=== PATIENT | female | born 1975 | race Two or more races ===

== ENCOUNTER 2020-05-22 19:58 | Observation (INO) | payer OTHER ==
[~2020-05-22 19:58] MED LIST: Iopamidol 370 76% 100 ML VIAL ONE; Iopamidol 370 76% 50 ML VIAL FS ONE
[2020-05-22] MEDS ORDERED: diphenhydrAMINE 50 MG/ML VIAL ONE (20:53)
[2020-05-22] MEDS ORDERED: Metoclopramide HCl 10 MG/2 ML VIAL ONE (20:53)
[2020-05-22] MEDS ORDERED: Promethazine HCl 25 MG/ML VIAL ONE (21:24)
[2020-05-22 21:33] LABS: ALT (SGPT) 13 U/L (8-55); AST (SGOT) 16 U/L (5-34); Albumin 4.1 g/dL (3.5-5.0); Alkaline Phosphatase 63 U/L (40-110); Anion Gap 17 mmol/L (10-20); BUN (Urea Nitrogen) 7 mg/dL (7.0-18.7); Bilirubin, Total 0.7 mg/dL (0.2-1.2); Calc. Creatinine Clearance 0 mL/min (70-130); Calcium 9.5 mg/dL (7.8-10.44); Carbon Dioxide 21 mmol/L (22-29); Chloride 106 mmol/L (98-107); Estimated GFR-MDRD 67; Globulin 2.8 g/dL (2.4-3.5); Glucose 110 mg/dL (70-105); Lipase 18 U/L (8-78); Protein, Total 6.9 g/dL (6.0-8.3); Sodium 140 mmol/L (136-145)
[2020-05-22 22:19] LABS: BHCG - Serum Negative (NEGATIVE); Pregs Control Background? CLEAR/WHITE (CLR/WHITE); Pregs Control Bar Appear? YES (CONTROL BAR)
[2020-05-22] MEDS ORDERED: Haloperidol Lactate 5 MG/ML VIAL ONE (22:48)
[2020-05-22 23:22] LABS: Bilirubin Negative (Negative); Blood, Urine Negative (Negative); Clarity Clear (Clear); Glucose, Urine (Dipstick) Normal (Negative); Ketone, Urine 60 mg/dL (Negative); Leukocyte Negative Leu/uL (Negative); Nitrite Negative (Negative); Protein, Urine (Dipstick) Negative (Neg-Trace); Specific Gravity, Urine 1.016 (1.002-1.036); Urobilinogen Normal mg/dL (Less than 2)
[2020-05-22] MEDS ORDERED: Ondansetron PF 4 MG/2 ML Vial ONE (23:43)
[2020-05-22] MEDS ORDERED: Magnesium 2 GM/50 ML BAG (IN WATER) ONE (23:43)
--- NOTE | 2020-05-23 00:03 | PDOC.FPRHP ---
- History of Present Illness Chief Complaint: N/V History of Present Illness: 44 yo F with history of cannabinoid use and gastric bypass surgery in 2004 complaining of nausea and vomiting since Thursday. Patient is from [place] and in town visiting family, explains she has been vomiting daily since Thursday and has taken zofran and phenergen at home which has not help. Vomiting became more frequent today, occurring every few minutes for 3 hours. Vomit consists of foam as patient has not eaten since Thursday. Patient had similar episode last month, which lasted a few days and then stopped. Of note, patient reports an 80 pound weight loss last year due to decreased appetite but reports her appetite returned this year and she has gained most of it back. Patient denies vision changes, fever and hematemesis. She endorses chills and abdominal pain and reports diarrhea last Thursday for which she took immodium and has had 2-3 small bowel movements since. Patient also complains of tingling in her legs since being in the ED and receiving medications, explaining it feels like "bugs are crawling all over her legs" and she finds it hard to sit still. ED Course: Received phenergen, reglan, haldol, zofran, benadryl, thiamine, 2L fluids, and magnesium in ED - Allergies/Adverse Reactions Allergies Allergy/AdvReac Type Severity Reaction Status Date / Time No Known Drug Allergies Allergy Verified 05/23/20 08:14 - History PMHx: depression, anxiety, GERD, anemia PSHx: gastric bypass 2004 FHx: Mom-tortuous colon, thyroid cancer, Dad-HTN Social: vapes, drinks a 6pack once a week, smokes marijuana daily, denies other drug use - Review of Systems General: reports: fever/chills. denies: weight/appetite/sleep changes, night sweats Eyes: denies: vision changes ENT: denies: nasal congestion Respiratory: denies: shortness of breath Cardiovascular: denies: chest pain Gastrointestinal: reports: nausea, vomiting, diarrhea, constipation, abdominal pain Genitourinary: denies: dysuria Skin: denies: rashes, itching Musculoskeletal: denies: pain, tenderness Neurological: denies: numbness, seizure, weakness - Vital signs BP: 141/80 HR: 66 RR: 22 Tmax: 98.8 Pox: 98% on RA Wt: 84kg - Physical Exam Constitutional: awake, alert and oriented HEENT: normocephalic and atraumatic, EOMI, no scleral icterus, grossly normal vision, grossly normal hearing Neck: supple, FROM Heart: RRR, no murmurs/rubs/gallops Lungs: CTAB, no respiratory distress, no wheezing Abdomen: soft, non-tender Musculoskeletal: ROM grossly normal Neurological: no focal deficit, CN II-XII intact Skin: no rash/lesions Psychiatric: normal mood and affect, good judgment and insight, intact recent and remote memory FMR H&P: Results - Labs Result Diagrams: 05/23/20 04:32 05/23/20 04:32 Lab results: Sodium 140 mmol/L (136-145) 05/22/20 20:43 Potassium 4.0 mmol/L (3.5-5.1) 05/22/20 20:43 Chloride 106 mmol/L (98-107) 05/22/20 20:43 Carbon Dioxide 21 mmol/L (22-29) L 05/22/20 20:43 BUN 7 mg/dL (7.0-18.7) 05/22/20 20:43 Creatinine 0.91 mg/dL (0.6-1.1) 05/22/20 20:43 Glucose 110 mg/dL (70-105) H 05/22/20 20:43 Calcium 9.5 mg/dL (7.8-10.44) 05/22/20 20:43 Total Bilirubin 0.7 mg/dL (0.2-1.2) 05/22/20 20:43 AST 16 U/L (5-34) 05/22/20 20:43 ALT 13 U/L (8-55) 05/22/20 20:43 Alkaline Phosphatase 63 U/L (40-110) 05/22/20 20:43 Serum Total Protein 6.9 g/dL (6.0-8.3) 05/22/20 20:43 Albumin 4.1 g/dL (3.5-5.0) 05/22/20 20:43 Lipase 18 U/L (8-78) 05/22/20 20:43 Urine Ketones 60 mg/dL (Negative) A 05/22/20 22:07 Urine Blood Negative (Negative) 05/22/20 22:07 Urine Nitrite Negative (Negative) 05/22/20 22:07 Ur Leukocyte Esterase Negative Licha/uL (Negative) 05/22/20 22:07 - EKG Interpretation EKG: sinus bradycardia - Radiology Interpretation CT scan - abdomen Status: pending FMR H&P: A/P - Plan 44 yo F with history of cannabinoid use and gastric bypass surgery in 2004 complaining of nausea and vomiting Intractable vomiting 2/2 to gastric bypass vs cannabis hyperemesis syndrome Nonresponsive to phenergen, zofran, reglan, zofran, benadryl in ED. Reports improvement with warm bath -Admit to tele to monitor for QT prolongation, receive Mg in ED -scopolamine patch -TSH pending -Daily CBC, BMP -LR 125mL/hr -Abd CT reading pending Cannabis use Endorses daily use, unclear of how much -May be cause of nausea and vomiting Alcohol use Endorses drinking a 6pack per week. No current signs of alcohol withdrawl. -ASE protocol Depression -Aware, continue Zoloft Anxiety -Aware, continue Zoloft GERD -Aware, continue Zoloft DVT PPx: None Diet: NPO Code: FULL IVF: LR 125mL/hr Dispo: eLOS< 48hrs pending resolution of symptoms FMR H&P: Upper Level - Plan Date/Time: 05/23/20 Cedric Chavira DO, have evaluated this patient and agree with findings/plan as outlined by international project engineer resident. Pertinent changes/additions are listed here. 44 yo F prsents with n/v for the past 3-4 day she recently drove from [facility] to be with family reports nausea and vomiting upon arrival which did not resolve. she denies other symptoms bowel movements have been diarrhea and form stools, no hematochezia or hematemesis. denies fever/chills, flank pain. she has a hx of episodes of nv similar to this which resolved. reports cannabis use daily. nv improved with hot baths. in ED she received fluid, reglan, zofran, haldol, benadryl. on my exam she is restless but reports improvement to nv. vss, ekg wnl, labs wnl. ct ab/pel reviewed by me without significant abnormality, official read pending. Admit for intractable n/v likely secondary to cannabis hyperemesis syndrome, will make anti-emetics available prn, maintenance IVF. see international project engineer not for mgmt of chronic medical conditions. Addendum - Attending - Attending Attestation Date/Time: 05/23/201399 I personally evaluated the patient and discussed the management with Dr. Narvaez I agree with the History, Examination, Assessment and Plan documented above with any addition or exceptions noted below - 44 yo F with history of cannabinoid use and gastric bypass surgery in 2004 complaining of nausea and vomiting since Thursday. Patient is from [place] and in town visiting family, explains she has been vomiting daily since Thursday and has taken zofran and phenergen at home which has not help. Vomiting became more frequent today, occurring every few minutes for 3 hours. Vomit consists of foam as patient has not eaten since Thursday. Patient had similar episode last month, which lasted a few days and then stopped. Denies fever/chills. Denies ill contacts. Is here visiting from [place]. Does report that she feels better when she takes a warm bath or shower. Currently feeling a little better; has had some apple juice with no vomiting. PMH/PSH/Meds/SH reviewed and agree with resident's documentation. Afebrile VSS. Exam repeated by me and agree with resident's findings. Labs: Normal CMP,CBC, TSH. UDS (+) MJ A/P: 1) N/V most likely cannabis hyperemesis - continue antiemetics and IVF. If able to control symptoms with po meds, plan to d/c home.
[2020-05-23 00:09] LABS: #Basophils 0.1 thou/uL (0.0-0.2); #Lymphocytes 0.8 thou/uL (1.20-3.40); #Monocytes 0.2 thou/uL (0.11-0.59); #Neutrophils 9.6 thou/uL (1.40-6.50); %Basophils 0.5 % (0.0-1.0); %Lymphocytes 7.5 % (21.0-51.0); %Monocytes 2.1 % (0.0-10.0); %Neutrophils 89.9 % (42.0-75.0); Hemoglobin 15.6 g/dL (12.0-16.0); Mean Corpuscular HGB CONC 35.1 g/dL (32.0-36.0); Mean Corpuscular Hemoglobin 32.3 pg (27.0-31.0); Mean Corpuscular Volume 92.3 fL (78.0-98.0); Mean Platelet Volume 7.6 fL (7.4-10.4); Platelet Count 262 thou/uL (130-400); RBC Distribution Width 12.5 % (11.5-14.5); Red Blood Cell (RBC) Count 4.81 mill/uL (4.20-5.40); White Blood Cell (WBC) Count 10.7 thou/uL (4.8-10.8)
[2020-05-23] MEDS ORDERED: Ondansetron PF 4 MG/2 ML Vial IVP PRN (00:34)
[2020-05-23] MEDS ORDERED: Ondansetron ODT 4 MG TAB PO PRN ×4 (00:34→11:35)
[2020-05-23] MEDS ORDERED: Acetaminophen 650 MG Suppository PR PRN (00:34)
[2020-05-23] MEDS ORDERED: Acetaminophen 325 MG TAB PO PRN (00:34)
[2020-05-23] MEDS ORDERED: Promethazine HCl 25 MG in Sodium Chloride 0.9% 50 ML IVPB PRN (00:34)
[2020-05-23] MEDS ORDERED: Lactated Ringer's 1,000 ML IV SCH (00:45)
[2020-05-23] MEDS ORDERED: Scopolamine 1.5 mg/72 hour Patch TD SCH (01:00)
[2020-05-23 03:14] LABS: Amphetamine Not Detected (NotDetected); Barbiturates Screen Not Detected (NotDetected); Benzodiazepine Screen Not Detected (NotDetected); Cocaine Metabolite Screen Not Detected (NotDetected); Medtox Control Line Valid? VALID (VALID); Medtox Reader # READER 4; Methadone Not Detected (NotDetected); Methamphetamine Not Detected (NotDetected); Opiate Screen Not Detected (NotDetected); Oxycodone Screen Not Detected (NotDetected); Phencyclidine (PCP) Not Detected (NotDetected); THC/Cannabinoid Screen Detected (NotDetected); Tricyclic Screen Not Detected (NotDetected)
[2020-05-23] MEDS ORDERED: Ondansetron PF 4 MG/2 ML Vial ONE (04:18)
[2020-05-23 05:07] LABS: Hemoglobin 15.5 g/dL (12.0-16.0); Lymphocytes 7 % (21-51); MDiff Complete? YES; Mean Corpuscular HGB CONC 33.5 g/dL (32.0-36.0); Mean Corpuscular Volume 92.6 fL (78.0-98.0); Mean Platelet Volume 7.8 fL (7.4-10.4); Monocytes 3 % (0-10); Neutrophil 90 % (42-75); Platelet Count 286 thou/uL (130-400); Platelet Morphology Comment Appears Adequate; RBC Distribution Width 12.6 % (11.5-14.5); Red Blood Cell (RBC) Count 5.01 mill/uL (4.20-5.40); White Blood Cell (WBC) Count 11.6 thou/uL (4.8-10.8)
[2020-05-23 05:19] LABS: Anion Gap 16 mmol/L (10-20); BUN (Urea Nitrogen) 6 mg/dL (7.0-18.7); Calc. Creatinine Clearance 0 mL/min (70-130); Calcium 8.8 mg/dL (7.8-10.44); Carbon Dioxide 21 mmol/L (22-29); Chloride 105 mmol/L (98-107); Estimated GFR-MDRD 84; Glucose 147 mg/dL (70-105); Potassium 4.4 mmol/L (3.5-5.1); Sodium 138 mmol/L (136-145)
--- NOTE | 2020-05-23 07:32 | CT ---
CT ABDOMEN AND PELVIS WITH IV CONTRAST: Date: 05/22/2020 HISTORY: Vomiting since Thursday. COMPARISON: None. FINDINGS: A tiny approximately 3.0 mm noncalcified pulmonary nodule is seen in a subpleural location at the rig ht lung base which is too small to characterize. Lung bases are otherwise clear. Postoperative changes of the stomach and loops of small bowel in the left upper quadrant are noted, l ikely related to prior bariatric surgery. There is mild dilatation of the loop of small bowel in the region of postoperative change, but the remainder of the small bowel loops are normal in caliber with out findings to suggest a bowel obstruction. There is motion present in the right aspect of the abdom en which limits adequate evaluation and also limits evaluation of the appendix, although no definitiv e secondary signs are seen to suggest appendicitis based on this exam. The liver, spleen, bilateral adrenal glands, kidneys, and uterus demonstrate a normal CT appearance. The pancreas is mildly fatty replaced. The urinary bladder is decompressed. No free fluid, fluid collection, or lymphadenopathy seen in the abdomen or pelvis. Abdominal aorta is normal in caliber. Degenerative changes are seen at the lumbosacral junction. IMPRESSION: 1. No acute findings are seen in the abdomen or pelvis. 2. Postoperative changes of the stomach and small bowel likely related to bariatric surgery. POS: JANINA
[2020-05-23 09:04] VITALS: TEMP 98.5
[2020-05-23 09:12] VITALS: BMI 29.8
--- NOTE | 2020-05-23 09:20 | PDOC.FM ---
- Subjective Subjective: Patient feeling better this morning. Has not had any more vomiting, but feels like she needs to. Endorses nausea. - Objective MAR Reviewed: Yes Vital Signs & Weight: Vital Signs (12 hours) Temp Pulse Resp Pulse Ox 05/23/20 08:00 98.5 F 62 16 95 Weight Weight 83.91 kg Result Diagrams: 05/23/20 04:32 05/23/20 04:32 Phys Exam - Physical Examination Constitutional: NAD HEENT: moist MMs Neck: full ROM Respiratory: no wheezing, clear to auscultation bilateral Cardiovascular: RRR, no significant murmur Gastrointestinal: soft, positive bowel sounds Musculoskeletal: no edema Neurological: moves all 4 limbs Psychiatric: normal affect, A&O x 3 Skin: no rash, normal turgor Dx/Plan - Plan Plan: Intractable vomiting 2/2 likely cannabis hyperemesis syndrome Nonresponsive to phenergen, zofran, reglan, zofran, benadryl in ED. Reports improvement with warm bath/shower -Admit to tele to monitor for QT prolongation, received Mg in ED -scopolamine patch -TSH pending -Daily CBC, BMP -LR 125mL/hr -Abd CT normal -try to PO challenge her this morning with full liquid diet and advance as tolerated -encouraged her to stop marijuana use for a few months to see if these episodes stop Cannabis use Endorses daily use, unclear of how much -Likely cause of nausea and vomiting Alcohol use Endorses drinking a 6pack per week. No current signs of alcohol withdrawl. -ASE protocol Depression -Aware, continue Zoloft Anxiety -Aware, continue Zoloft GERD -Aware, continue Zoloft DVT PPx: None Diet: full liquid Code: FULL IVF: LR 125mL/hr Dispo: eLOS< 48hrs pending resolution of symptoms Addendum - Attending - Attending Attestation Date/Time: 05/23/20 [id number] I personally evaluated the patient and discussed the management with Dr. Kong I agree with the History, Examination, Assessment and Plan documented above with any addition or exceptions noted below.
[2020-05-23] MEDS ORDERED: Ondansetron ODT 4 MG TAB ONE (11:13)
[2020-05-23 13:00] LABS: SARS-CoV-2 MS2 Positive; SARS-CoV-2 N Gene Negative; SARS-CoV-2 S Gene Negative; SARS-CoV-2 by NAA Not Detected (NotDetected); SARS-CoV-2 orf1ab Negative
--- NOTE | 2020-05-25 01:09 | DIS ---
DATE OF ADMISSION: 05/23/2020 DATE OF DISCHARGE: 05/23/2020 RESIDENT: Lia Kong MD, PGY-1. ADMITTING ATTENDING: Dr. Velazquez. DISCHARGE ATTENDING: Dr. Olivera. CONSULTS: None. PROCEDURES: Abdomen and pelvis CT, which showed no acute findings and postoperative changes of the stomach and small bowel, likely related to bariatric surgery. PRIMARY DIAGNOSIS: Intractable vomiting secondary to cannabis hyperemesis syndrome. SECONDARY DIAGNOSIS: 1. Chronic cannabis use. 2. Alcohol use. 3. Depression. 4. Anxiety. 5. Gastroesophageal reflux disease. DISCHARGE MEDICATIONS: 1. Zofran ODT 4 mg p.o. q.6 hours as needed. 2. Compazine 5 mg p.o. q.4 hours as needed. Discontinued medications: None. HISTORY OF PRESENT ILLNESS/HOSPITAL COURSE: The patient is a 44-year-old female, who presented to the ED complaining of nausea and vomiting for several days. She took Zofran and Phenergan at home, which did not help. She says she is vomiting every few minutes for 3 hours. She says it looks foamy as she has not been able to eat since 3 days prior to visit to the ED. The patient had similar episodes in the past, which lasted a few days and then stopped. She says they are becoming more frequent.She did take Imodium to help with bowel movements, and had 2 to 3 bowel movements with that intervention. In the ER, the patient received Phenergan, Reglan, Haldol, Zofran, Benadryl, thiamine, 2 L of fluids, and magnesium. The patient's labs were nonsignificant. Her vitals remain stable. She was monitored on tele with no events. The patient was able to tolerate full liquid diet and wanted to go home. DISPOSITION: Stable. DISCHARGE INSTRUCTIONS: Location: Home. Diet: Advance diet as tolerated based on nausea and vomiting. Activities: As tolerated. Followup with PCP within the next week. Job ID: [id number] [facility]
--- NOTE | 2020-05-26 11:54 | EKG ---
Test Reason : AB PAINN Blood Pressure : / mmHG Vent. Rate : 058 BPM Atrial Rate : 058 BPM P-R Int : 128 ms QRS Dur : 074 ms QT Int : 454 ms P-R-T Axes : 023 030 068 degrees QTc Int : 445 ms Sinus bradycardia Nonspecific ST and T wave abnormality Abnormal ECG Confirmed by DARÍO Jones, FADY ([id number]), supervising editor trailer SHAWN ROMAN ([id number]) on 05/26/2020 11:54:31 AM Referred By: DARÍO Confirmed By:FADY CHANEL M.D.
== END 2020-05-23 15:25 | disposition home or self-care (01) ==
LOC: ERS 19:58 → ERHOLD 05-23 00:04
PROVIDERS: ADMIT Family Medicine; ATTEND Family Medicine
DX: R11.2 Nausea with vomiting, unspecified (principal); F12.988 Cannabis use, unspecified with other cannabis-induced disorder; F32.9 Major depressive disorder, single episode, unspecified; F41.9 Anxiety disorder, unspecified; K21.9 Gastro-esophageal reflux disease without esophagitis; F17.290 Nicotine dependence, other tobacco product, uncomplicated; Z98.84 Bariatric surgery status; Z20.828 Contact with and (suspected) exposure to other viral communicable diseases
CPT/HCPCS: 36415; 36416; 74177; 80048; 80053; 80306; 81003; 83690; 84443; 84484; 84703; 85007; 85025; 85027; 87635; 93005; 94760; 96376; G0378; J1200; J1630; J2405; J2550; J2765; J3411; J3475; Q0162; Q9967; U0003

== ENCOUNTER 2020-05-27 17:58 | Inpatient (IN) | payer OTHER ==
--- NOTE | 2020-05-27 19:03 | RAD ---
XR Chest 1 View Portable HISTORY: Upper abdominal pain COMPARISON: None FINDINGS: The heart size is normal. The lungs are well expanded without focal areas of consolidation, pneumothorax or pleural effusions. IMPRESSION: No radiographic evidence of acute cardiopulmonary process.
[2020-05-27 19:12] LABS: ALT (SGPT) 31 U/L (8-55); AST (SGOT) 56 U/L (5-34); Albumin 4.2 g/dL (3.5-5.0); Alkaline Phosphatase 64 U/L (40-110); Anion Gap 22 mmol/L (10-20); BUN (Urea Nitrogen) 13 mg/dL (7.0-18.7); Bilirubin, Total 0.9 mg/dL (0.2-1.2); Calc. Creatinine Clearance 0 mL/min (70-130); Calcium 9.4 mg/dL (7.8-10.44); Carbon Dioxide 16 mmol/L (22-29); Chloride 106 mmol/L (98-107); Estimated GFR-MDRD 70; Globulin 2.6 g/dL (2.4-3.5); Glucose 184 mg/dL (70-105); Lipase 21 U/L (8-78); Potassium 4.3 mmol/L (3.5-5.1); Protein, Total 6.8 g/dL (6.0-8.3); Sodium 140 mmol/L (136-145)
[2020-05-27] MEDS ORDERED: diphenhydrAMINE 50 MG/ML VIAL ONE (19:15)
[2020-05-27] MEDS ORDERED: Metoclopramide 10 MG/10 ML UDCUP ONE (19:16)
[2020-05-27] MEDS ORDERED: Pantoprazole 40 MG VIAL ONE (19:16)
[2020-05-27] MEDS ORDERED: Metoclopramide HCl 10 MG/2 ML VIAL ONE (19:18)
[2020-05-27 19:34] LABS: CKMB 2.3 ng/mL (0-6.6)
[2020-05-27 20:14] LABS: Bacteria/HPF None Seen HPF (None Seen); Bilirubin Negative (Negative); Blood, Urine Trace (Negative); Clarity Clear (Clear); Glucose, Urine (Dipstick) 50 mg/dL (Negative); Ketone, Urine Greater than 150 mg/dL (Negative); Leukocyte Negative Leu/uL (Negative); Nitrite Negative (Negative); Protein, Urine (Dipstick) Negative (Neg-Trace); RBC/HPF 0-3 HPF (0-3); Squamous Epithelial 0-3 HPF (0-3); Urobilinogen Normal mg/dL (Less than 2); WBC/HPF 0-3 HPF (0-3); pH, Urine 6.5 (5.0-9.0)
[2020-05-27 20:16] LABS: Pregnancy Test - Urine (BHCG) Negative (Negative); Pregu Control Background? CLEAR/WHITE (CLR/WHITE); Pregu Control Bar Appear? YES (CONTROL BAR)
[2020-05-27] MEDS ORDERED: Enoxaparin Sodium 80 MG/0.8 ML SYRINGE ONE (21:33)
[2020-05-27] MEDS ORDERED: Aspirin Chewable 81 MG TAB ONE (21:33)
--- NOTE | 2020-05-27 22:06 | PDOC.FPRHP ---
- History of Present Illness Chief Complaint: Nausea and vomiting History of Present Illness: Patient is a 44 year old female, PMH of Gatric Bypass surgery 2004, anemia, hypoglycemia who presents to the ED with complaints of N/V that started this afternoon accompanied by chest pain and shortness of breath. She notes that she has vomited 10+ times, no blood in the vomit but has noticed a pinkish tint and she has had some mild abdominal cramping. Her BMs switch off between diarrhea and constipation chronically. She states her chest pain and shortness and breath have been on/off for the past few days but since this morning has been constant, central chest pain, mild, with no radiations, nothing makes the pain better or worse. She notes her shortness of breath is worse with talking. She denies fever/chills, ill contacts, urinary sxs, headaches, vision changes. Of note, the patient was discharged from the hospital 4 days prior due to intractable vomiting that was suspected due to cannabis hyperemesis syndrome. She reports she has not smoked weed since that visit. ED Course: Patient had an elevated Troponin in the ED of .223, unchanged EKG from previous visit, Cards Dr. Bocanegra was consulted who recommended trending her Trops and he would see her in the am. Patient was given aspirin, lovenox, metoclopramide, benadryl, protonix and 1L NS. - Allergies/Adverse Reactions Allergies Allergy/AdvReac Type Severity Reaction Status Date / Time No Known Drug Allergies Allergy Verified 05/23/20 08:14 - Home Medications Medication Instructions Recorded Confirmed Type Ondansetron [Zofran ODT] 4 mg PO PRN PRN 05/23/20 05/27/20 History Prochlorperazine Maleate 5 mg PO Q4HR PRN #20 tab 05/23/20 05/27/20 Rx [Compazine] Fluticasone Propionate [Flonase 1 spray EA NARE DAILY 05/27/20 05/27/20 History Allergy Relief] Loratadine [Claritin] 1 tab PO DAILY 05/27/20 05/27/20 History Omeprazole 20 mg PO DAILY 05/27/20 05/27/20 History Sertraline HCl [Zoloft] 100 mg PO DAILY 05/27/20 05/27/20 History - History PMHx: Hypoglycemia, Anemia, Depression and Anxiety PSHx: Gastric Bypass surgery 2004 w/ complication of ulcer, Wrist surgery 04/23 FHx: DM, HTN Social: vapes daily x years, canabinoid use 1x a week for months, no alcohol or other drugs - Review of Systems General: denies: fever/chills, weight/appetite/sleep changes Eyes: denies: eye pain, vision changes ENT: denies: nasal congestion, rhinorrhea Respiratory: reports: shortness of breath. denies: cough, congestion Cardiovascular: reports: chest pain, edema (chronic LE edema per patient). denies: palpitation Gastrointestinal: reports: nausea, vomiting, diarrhea, constipation, abdominal pain. denies: GI bleeding Genitourinary: denies: incontinence, dysuria Skin: denies: rashes, lesions Musculoskeletal: reports: other (patient reports restless legs from antiemetics). denies: tenderness Neurological: denies: numbness, syncope Psychological: reports: anxiety, depression - Vital signs BP: 125/82, Pulse: 62, Resp: 18, Temp: 98.4 (Oral), O2 sat: 99 on (Room Air), Wt: 78.47kg FMR H&P: Results - Labs Result Diagrams: 05/27/20 18:44 Lab results: Sodium 140 mmol/L (136-145) 05/27/20 18:44 Potassium 4.3 mmol/L (3.5-5.1) 05/27/20 18:44 Chloride 106 mmol/L (98-107) 05/27/20 18:44 Carbon Dioxide 16 mmol/L (22-29) L 05/27/20 18:44 BUN 13 mg/dL (7.0-18.7) 05/27/20 18:44 Creatinine 0.88 mg/dL (0.6-1.1) 05/27/20 18:44 Glucose 184 mg/dL (70-105) H 05/27/20 18:44 Calcium 9.4 mg/dL (7.8-10.44) 05/27/20 18:44 Total Bilirubin 0.9 mg/dL (0.2-1.2) 05/27/20 18:44 AST 56 U/L (5-34) H 05/27/20 18:44 ALT 31 U/L (8-55) 11/08/20 18:44 Alkaline Phosphatase 64 U/L (40-110) 05/27/20 18:44 CK-MB (CK-2) 2.3 ng/mL (0-6.6) 05/27/20 18:44 Serum Total Protein 6.8 g/dL (6.0-8.3) 05/27/20 18:44 Albumin 4.2 g/dL (3.5-5.0) 05/27/20 18:44 Lipase 21 U/L (8-78) 05/27/20 18:44 Urine Ketones Greater than 150 mg/dL (Negative) A 05/27/20 20:00 Urine Blood Trace (Negative) A 05/27/20 20:00 Urine Nitrite Negative (Negative) 05/27/20 20:00 Ur Leukocyte Esterase Negative Licha/uL (Negative) 05/27/20 20:00 Urine RBC 0-3 HPF (0-3) 05/27/20 20:00 Urine WBC 0-3 HPF (0-3) 05/27/20 20:00 Ur Squamous Epith Cells 0-3 HPF (0-3) 05/27/20 20:00 Urine Bacteria None Seen HPF (None Seen) 05/27/20 20:00 FMR H&P: A/P - Plan NSTEMI Atypical CP Trop .223 > .568 EKG unchanged from previous visit, no ST changes CXR negative RFs include smoking (vapes) Heart Score 2 - continue to trend trops - s/p lovenox & aspirin in ED, will continue therapeutic lovenox, aspirin, added nitropaste - risk stratification with lipid panel, a1c - Cardiology consulted in ED, Dr. Bocanegra, will see her in the am - tele monitoring Intractable N/V Likely 2/2 NSTEMI vs Cannabinoid Hyperemesis Syndrome - symptomatic management with zofran and phenergan, will escalate as necessary - monitor electrolytes - mIVFs - consider GI consult after cardiac workup Extrapyramidal effects of Metoclopramide - s/p benadyrl IV, will add benztropine Hx Anemia - pending CBC Hx Anxiety Depression - will start home medications Code: Full Prophylaxis: Thx lovenox, protonix Fluids: LR 120ml/hr Diet: NPO Disposition: DC in 2-3 days PCP: None, bounce back, visiting from [place] FMR H&P: Upper Level - Plan Date/Time: 05/27/202205 IKris DO, have evaluated this patient and agree with findings/plan as outlined by music intern resident. Pertinent changes/additions are listed here. This is a 44 yo female with a pmh of chronic cannabis use, alcohol use, depression, anxiety, and GERD who present to the ER with a cc of intractable vomiting. She was recently discharged from the hospital with a similar diagnosis of nausea and vomiting related to cannabis use. She states that she has felt nauseated since she left the hospital on the 4th of this month but states that today her nausea worsened. She does endorse associated SOB and some chest pain worse with talking. She denies family or personal history of cardiovascular disease. She reports that her vomiting did produce some pink tinged emesis.Today she denies that she has had any previous marijuana use in the last few days. She also endorses epigastric/chest pain without radiation. Previous surgeries include gastric bypass and right wrist ORIF. She also makes mention that every time she receives an antiemetic, she has a restlessness in her legs that is almost uncontrollable. Objective: Vitals: BP 130/78, HR 60, RR 22, Temp 98.4, SpO2 99% RA, Wt 78kg General: mild distress HEENT: AT/NC, MMM Cardio: RRR, no murmurs Respiratory: CTAB Abdomen: Soft, mild tenderness Extremities: no edema, pt is flailing extremities from restlessness A/P Atypical chest/epigastric pain with elevated troponin likely due to vomiting -Admit to tele obs -NSTEMI -Trend troponins, first was 0.223 -S/P nitro paste, therapeutic lovenox, ASA -Heart score of 2 -EKG shows no ST elevation or depressions -Cardiology called from the ER, will see her in the morning Intractable nausea and vomiting -symptomatic management with diphenhydramine, prochlorperazine, promethazine, and consider steroids or haldol -Monitor electrolytes -mIVF -Consider GI consult after her cardiac Extrapyramidal effects of metoclopramide -S/P Benadryl IV, will consider benztropine since all antiemetics may cause this effect Please see music intern note for further information and for chronic condition prem dima. Code: Full Prophylaxis: Thx lovenox, protonix Family: Father at bedside Fluids: LR 120ml/hr Diet: NPO Disposition: DC in 2-3 days PCP: None, bounce back
[2020-05-27 22:40] LABS: Troponin I 0.568 ng/mL (< 0.028)
[2020-05-27 22:50] VITALS: BMI 30.8
[2020-05-27] MEDS: Ondansetron ODT 4 MG TAB PO PRN (22:55)
[2020-05-27 23:47] LABS: Hemoglobin A1c 5.1 % (4.0-6.0)
[2020-05-27 23:54] LABS: Cardiac Risk 3.6 (Less than 4.5)
[2020-05-28] MEDS: Benztropine 1 MG TAB PO SCH ×4 (00:32→22:48)
[2020-05-28] MEDS: Lactated Ringer's 1,000 ML IV SCH ×3 (00:32→14:50)
[2020-05-28 00:51] LABS: Mean Corpuscular HGB CONC 32.8 g/dL (32.0-36.0); Mean Corpuscular Hemoglobin 30.8 pg (27.0-31.0); Mean Corpuscular Volume 94.2 fL (78.0-98.0); Mean Platelet Volume 8.8 fL (7.4-10.4); Platelet Count 264 thou/uL (130-400); RBC Distribution Width 12.8 % (11.5-14.5); White Blood Cell (WBC) Count 12.7 thou/uL (4.8-10.8)
[2020-05-28 01:15] LABS: Band 22 % (5-11); Lymphocytes 5 % (21-51); MDiff Complete? YES; Neutrophil 73 % (42-75)
[2020-05-28 01:34] LABS: Troponin I 0.838 ng/mL (< 0.028)
[2020-05-28] MEDS ORDERED: Nitroglycerin 4.9 GM Bottle SL PRN (03:55)
[2020-05-28] MEDS ORDERED: Nitroglycerin 2% Ointment 1 INCH/1 GM Packet TOP SCH ×2 (04:00→09:00)
[2020-05-28] MEDS ORDERED: Nitroglycerin 0.4 MG TAB (25 Tab Bottle) SL PRN (04:00)
[2020-05-28] MEDS: Ondansetron ODT 4 MG TAB PO PRN ×3 (04:06→22:00)
[2020-05-28 04:58] LABS: Anion Gap 17 mmol/L (10-20); BUN (Urea Nitrogen) 10 mg/dL (7.0-18.7); Calc. Creatinine Clearance 132 mL/min (70-130); Calcium 8.8 mg/dL (7.8-10.44); Carbon Dioxide 19 mmol/L (22-29); Chloride 105 mmol/L (98-107); Estimated GFR-MDRD Greater than 90; Glucose 118 mg/dL (70-105); Potassium 3.8 mmol/L (3.5-5.1); Sodium 137 mmol/L (136-145)
[2020-05-28 05:13] LABS: Troponin I 0.909 ng/mL (< 0.028)
--- NOTE | 2020-05-28 06:39 | PDOC.FM ---
- Subjective Subjective: Patient is restless this morning and very anxious. Her nausea is unbearable. She has not really vomited because she has not ate. She denies CP, but does have some SOB but she thinks it is because of her nausea. It hurts to take a deep breath because it makes her nauseous. - Objective MAR Reviewed: Yes Vital Signs & Weight: Vital Signs (12 hours) Temp Pulse Resp BP Pulse Ox 05/28/20 04:00 99.4 F 77 15 141/76 H 98 05/27/20 22:13 99.1 F 64 23 H 140/75 97 05/27/20 20:30 97 Weight Weight 78.925 kg I&O: 05/26/20 05/27/20 05/28/20 06:59 06:59 06:59 Intake Total 380 Output Total 400 Balance -20 Result Diagrams: 05/27/20 18:40 05/28/20 04:20 Phys Exam - Physical Examination restless, anxious HEENT: moist MMs Neck: full ROM Respiratory: no wheezing, clear to auscultation bilateral Cardiovascular: RRR, no significant murmur diffusely TTP, no guarding Musculoskeletal: no edema, pulses present Psychiatric: A&O x 3 Dx/Plan - Plan Plan: NSTEMI Atypical CP Trop .223 > .568 >.838 >.909 EKG unchanged from previous visit, no ST changes CXR negative RFs include smoking (vapes) Heart Score 2 - s/p lovenox & aspirin in ED, will continue therapeutic lovenox, aspirin, added nitropaste - A1C 5.1% - Cardiology consulted in ED, Dr. Bocanegra, appreciate the recs - tele monitoring - F/u UDS Intractable N/V Likely 2/2 NSTEMI vs Cannabinoid Hyperemesis Syndrome - symptomatic management with zofran PRN, reglan MAYRA, phenergan PRN, will escalate as necessary - monitor electrolytes - mIVFs - consider GI consult after cardiac workup Extrapyramidal effects of Metoclopramide - s/p benadyrl IV, will add benztropine Hx Anemia - aware Hx Anxiety Depression - will restart home medications - PRN Ativan Code: Full Prophylaxis: Thx lovenox, protonix Fluids: LR 120ml/hr Diet: NPO Disposition: DC in 2-3 days PCP: None, bounce back, visiting from [place] Addendum - Attending - Attending Attestation Date/Time: 05/28/20 1231 I personally evaluated the patient and discussed the management with Dr. Kong. I agree with the History, Examination, Assessment and Plan documented above with any addition or exceptions noted below.
[2020-05-28] MEDS: Promethazine HCl 12.5 MG in Sodium Chloride 0.9% 50 ML IVPB PRN ×2 (07:51→15:46)
[2020-05-28] MEDS: Fluticasone Propionate Nasal Spray 16 gm Bottle NASAL SCH (07:52)
[2020-05-28] MEDS: Enoxaparin Sodium 80 MG/0.8 ML SYRINGE SC SCH ×2 (07:52→22:00)
[2020-05-28] MEDS: Pantoprazole 40 MG VIAL IVP SCH (07:53)
[2020-05-28] MEDS: Loratadine 10 MG TAB PO SCH (07:53)
[2020-05-28] MEDS ORDERED: Famotidine 20 MG TAB PO SCH (09:00)
[2020-05-28] MEDS ORDERED: Lorazepam 2 MG/ML VIAL SLOW IVP PRN (09:10)
[2020-05-28 10:22] LABS: Magnesium 1.9 mg/dL (1.6-2.6); Phosphorus 2.4 mg/dL (2.3-4.7)
[2020-05-28 12:03] LABS: Cocaine Metabolite Screen Not Detected (NotDetected); Medtox Reader # READER 4; Methamphetamine Not Detected (NotDetected); Phencyclidine (PCP) Not Detected (NotDetected); THC/Cannabinoid Screen Detected (NotDetected)
[2020-05-28 12:04] LABS: Amphetamine Not Detected (NotDetected); Barbiturates Screen Not Detected (NotDetected); Benzodiazepine Screen Not Detected (NotDetected); Medtox Control Line Valid? VALID (VALID); Methadone Not Detected (NotDetected); Opiate Screen Not Detected (NotDetected); Oxycodone Screen Not Detected (NotDetected); Tricyclic Screen Not Detected (NotDetected)
[2020-05-28] MEDS: Metoclopramide HCl 10 MG/2 ML VIAL IVP SCH ×2 (14:34→21:59)
[2020-05-28] MEDS: Acetaminophen 325 MG TAB PO PRN (14:35)
--- NOTE | 2020-05-28 19:56 | CON ---
DATE OF CONSULTATION: 05/28/2020 INDICATION FOR CONSULTATION: A 44-year-old patient with chronic intermittent nausea and vomiting with slight elevation of cardiac enzymes. HISTORY OF PRESENT ILLNESS: This is a very pleasant but unfortunate 44-year-old female who underwent a Sarah-en-Y procedure back in I believe 2004 due to obesity and lost about 100 pounds, then she gained a little bit back, but then again this is several years ago. She also has had some nausea and vomiting for the past year, which comes on and off intermittently and she is actually lives in [place]. She is a ophthalmic medical technician. She was visiting her father here after she had fall and fractured her right wrist just for rehabilitation. She was here visiting and last few days has noticed increasing nausea and vomiting, just mainly dry heaves. Since she has had a Sarah-en-Y procedure, she does not really vomit of anything, but just foamy material. She has been using marijuana on a daily basis. It was some thought that perhaps this may be due to some of the marijuana; however, she has had this on and off for a year. She has also been using marijuana for about a year. 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 She also does vaping and mainly she complains of shortness of breath that is why she came to the hospital with the nausea and vomiting and has some chest discomfort, but she describes as being an achiness and most likely this is due to chronic heaving from the nausea and vomiting. However, her cardiac enzymes were slightly elevated on admission was 0.22, increased up to 0.56 and now the last one is 0.9, all still are indeterminate cardiac enzymes, but would not be unusual for somebody who has had hours upon hours of chronic dry heaving with nausea and vomiting. She has had no previous cardiac history. She denies any history of having stress test or echocardiograms in the past. At this time, she appears to be relatively comfortable. She has tried multiple medications for her nausea and vomiting. Zofran does seem to help apparently. She has also had some Reglan, but does have restless legs syndrome and this may have exacerbated even her restless legs and this did not help significantly. She has also been placed on H2 blockers. PAST MEDICAL HISTORY: Significant for the Sarah-en-Y procedure in 2004. She has a history of some back pain. She had a right rib fracture. She has also had her left fifth toe fracture. She had a history of nephrolithiasis. MEDICATIONS: Included at home, Zofran, Compazine as needed. She is on Flonase, loratadine, omeprazole, and sertraline. SOCIAL HISTORY: She does vaping on a routine basis as well as marijuana. ALLERGIES: THERE ARE NO KNOWN DRUG ALLERGIES. REVIEW OF SYSTEMS: Mainly, she complains of nausea and vomiting. She had no pulmonary complaints. No complaints. The only GI complaint was the nausea and vomiting. She has a partial plate in the front. She occasionally wears glasses. She has restless legs. Otherwise, review of systems is unremarkable except what is noted in the history of present illness. PHYSICAL EXAMINATION: GENERAL: Reveals a well-developed, well-nourished female, in no acute distress at this time. VITAL SIGNS: Blood pressure 127/71, heart rate is 70 and regular. She is afebrile. Respiratory rate 17, O2 saturation is 96%. HEENT: Shows head to be normocephalic and atraumatic. Carotid pulses are present. There were no bruits. CHEST: Clear to auscultation. There were no rales, rhonchi, or wheezing. CARDIOVASCULAR: Revealed a regular rate and rhythm at this time. She has a normal S1 and S2. There is no S3 or S4. There were no significant murmurs, heaves, thrills, bruits, or rubs. ABDOMEN: Slightly obese with positive bowel sounds. No organomegaly or masses are noted. Femoral pulses are present. EXTREMITIES: Show no clubbing, cyanosis, or edema. Pedal pulses are present. NEUROLOGIC: She appears to be fully intact. LABORATORY DATA: Shows WBC of 12.7, hemoglobin was 16, platelet count 264,000. Her troponin as noted above. Her LDL was 110 with HDL 47, triglycerides were 62. Her sodium was 137, BUN was 10, creatinine 0.68, blood sugar was 118. EKG shows a normal sinus rhythm. She did have no significant R-wave in leads III and aVF, but the small cues do not meet the criteria for myocardial infarction. IMPRESSION: 1. A 44-year-old female with abnormal cardiac enzymes, most likely related to a type 2 myocardial infarction and most likely due to demand ischemia with chronic hour upon hour of nausea and vomiting with dry heaves. She has not had an echocardiogram or stress test. We will start with a stress test and an echocardiogram for evaluation of left ventricular systolic function. She has had history of illicit drug use in the past and continues to use marijuana. Does not appear to have congestive heart failure, however, but we will check an echocardiogram to ensure there are no structural abnormalities that may be causing some congestive heart failure symptoms. 2. History of abnormal cardiac enzymes. It is highly unlikely that this is coronary artery disease given her presentation and ongoing nausea and vomiting and discomfort for a year. Again, we will check echocardiogram to determine whether or not there is any evidence of wall motion abnormalities. 3. Shortness of breath, which may be due to anxiety or chronic nausea and vomiting, or may be due to her use of marijuana. She tests positive for marijuana. Her drug screen at this time and also she has been vaping. I do not see that she has had any significant pulmonary problems as her O2 saturations are 96%. She may need further evaluation. Otherwise, from a cardiac standpoint, she appears to be relatively stable and we will be more than happy to continue to follow the patient with you. Further recommendations will follow after the echocardiogram. Job ID: [id number]
[2020-05-28] MEDS: Lorazepam 2 MG/ML VIAL SLOW IVP PRN (21:58)
[2020-05-29] MEDS: Lactated Ringer's 1,000 ML IV SCH ×3 (00:36→16:29)
[2020-05-29] MEDS: Metoclopramide HCl 10 MG/2 ML VIAL IVP SCH ×3 (05:07→21:39)
--- NOTE | 2020-05-29 06:13 | PDOC.FM ---
- Subjective Subjective: Patient resting comfortably this morning. States nausea and restless legs have improved. No vomiting. No CP, SOB, CURIEL - Objective MAR Reviewed: Yes Vital Signs & Weight: Vital Signs (12 hours) Temp Pulse Resp BP Pulse Ox 05/29/20 04:00 98 F 68 14 131/74 97 05/28/20 20:00 97 05/28/20 19:21 99.2 F 67 18 148/72 H 97 Weight Admit Weight 78.925 kg Weight 78.925 kg I&O: 05/27/20 05/28/20 05/29/20 06:59 06:59 06:59 Intake Total 380 2690 Output Total 400 1220 Balance -20 1470 Result Diagrams: 05/29/20 06:25 05/29/20 06:25 Phys Exam - Physical Examination Constitutional: NAD HEENT: moist MMs Neck: full ROM Respiratory: no wheezing, clear to auscultation bilateral Cardiovascular: RRR, no significant murmur Gastrointestinal: soft, non-tender Musculoskeletal: no edema, pulses present Neurological: moves all 4 limbs Psychiatric: A&O x 3 Skin: normal turgor Dx/Plan - Plan Plan: Type 2 NSTEMI Atypical CP Trop .223 > .568 >.838 >.909 EKG unchanged from previous visit, no ST changes CXR negative RFs include smoking (vapes) Heart Score 2 - s/p lovenox & aspirin in ED, will continue therapeutic lovenox, aspirin, added nitropaste - A1C 5.1% - Cardiology consulted in ED, appreciate the recs - tele monitoring - UDS positive for cannabinoids - plan for echo and stress 05/29, follow up results Intractable N/V, improving Likely 2/2 NSTEMI vs Cannabinoid Hyperemesis Syndrome - symptomatic management with zofran PRN, reglan MAYRA, phenergan PRN, will escalate as necessary - monitor electrolytes - mIVFs - consider GI consult after cardiac workup vs symptom control and having patient follow up outpatient as she is established with a GI already -advance diet after cardiac workup Extrapyramidal effects of Metoclopramide - s/p benadyrl IV, will add benztropine -improving Hx Anemia - aware Hx Anxiety Depression - will restart home medications - PRN Ativan Code: Full Prophylaxis: Thx lovenox, protonix Fluids: LR 120ml/hr Diet: NPO Disposition: pending cardiac workup, and ability to tolerate PO PCP: None, bounce back, visiting from [place] Addendum - Attending - Attending Attestation Date/Time: 05/29/20 1120 I personally evaluated the patient and discussed the management with Dr. Kong. I agree with the History, Examination, Assessment and Plan documented above with any addition or exceptions noted below. N/V improved. Going for stress test today per Cardiology. Further mgmt pending their recs.
[2020-05-29 06:46] LABS: #Lymphocytes 1.7 thou/uL (1.20-3.40); #Monocytes 0.8 thou/uL (0.11-0.59); #Neutrophils 7.8 thou/uL (1.40-6.50); %Basophils 0.3 % (0.0-1.0); %Eosinophils 0.1 % (0.0-10.0); %Lymphocytes 16.1 % (21.0-51.0); %Monocytes 7.3 % (0.0-10.0); %Neutrophils 76.2 % (42.0-75.0); Hemoglobin 15.7 g/dL (12.0-16.0); Mean Corpuscular HGB CONC 33.8 g/dL (32.0-36.0); Mean Corpuscular Hemoglobin 31.6 pg (27.0-31.0); Mean Corpuscular Volume 93.4 fL (78.0-98.0); Mean Platelet Volume 8.4 fL (7.4-10.4); Platelet Count 283 thou/uL (130-400); RBC Distribution Width 12.5 % (11.5-14.5); Red Blood Cell (RBC) Count 4.97 mill/uL (4.20-5.40); White Blood Cell (WBC) Count 10.3 thou/uL (4.8-10.8)
[2020-05-29 07:10] LABS: Anion Gap 18 mmol/L (10-20); BUN (Urea Nitrogen) 7 mg/dL (7.0-18.7); Carbon Dioxide 22 mmol/L (22-29); Chloride 102 mmol/L (98-107); Potassium 3.9 mmol/L (3.5-5.1); Sodium 138 mmol/L (136-145)
[2020-05-29 07:11] LABS: ALT (SGPT) 31 U/L (8-55); AST (SGOT) 51 U/L (5-34); Alkaline Phosphatase 60 U/L (40-110); Bilirubin, Total 1.2 mg/dL (0.2-1.2); Calc. Creatinine Clearance 124 mL/min (70-130); Calcium 9.1 mg/dL (7.8-10.44); Estimated GFR-MDRD 88; Globulin 3.2 g/dL (2.4-3.5); Glucose 94 mg/dL (70-105); Magnesium 1.9 mg/dL (1.6-2.6); Phosphorus 2.6 mg/dL (2.3-4.7); Protein, Total 7.2 g/dL (6.0-8.3)
[2020-05-29] MEDS: Promethazine HCl 12.5 MG in Sodium Chloride 0.9% 50 ML IVPB PRN ×2 (08:07→17:50)
[2020-05-29] MEDS: Enoxaparin Sodium 80 MG/0.8 ML SYRINGE SC SCH ×2 (09:00→20:50)
[2020-05-29] MEDS: Fluticasone Propionate Nasal Spray 16 gm Bottle NASAL SCH (09:00)
[2020-05-29] MEDS: Benztropine 1 MG TAB PO SCH ×2 (09:00→16:29)
[2020-05-29] MEDS: Pantoprazole 40 MG VIAL IVP SCH (09:01)
[2020-05-29] MEDS: Loratadine 10 MG TAB PO SCH (09:01)
[2020-05-29] MEDS: Ondansetron ODT 4 MG TAB PO PRN (09:01)
--- NOTE | 2020-05-29 12:30 | NM ---
NUCLEAR MEDICINE CARDIAC MYOCARDIAL PERFUSION SPECT: DATE: 05/29/2020 HISTORY: 44-year-old female with non-ST elevation myocardial infarction. TECHNIQUE: Number of days: 1 Rest study: Technetium 99m-sestamibi (Cardiolite) dose:10.5 mCi Stress study: Not performed. Canceled by the photographer scientific Dr. Santiago. FINDINGS: CARDIAC (MYOCARDIAL PERFUSION) SPECT There is a apical anteroseptal small to moderate-sized myocardial perfusion defect. There is a questionable posterior inferior lateral myocardial perfusion defect. IMPRESSION: 1) incomplete study. Cannot evaluate for areas of reversible ischemia because the stress study was ca nceled. 2) at least one and possibly 2 regions of infarction/scar.
[2020-05-29] MEDS: Lorazepam 2 MG/ML VIAL SLOW IVP PRN ×2 (12:44→18:39)
--- NOTE | 2020-05-29 17:56 | PDOC.CPN ---
- Subjective Date: 05/29/20 Time: 17:55 - Review of Systems General: denies: fever/chills, weight/appetite/sleep changes, night sweats, fatigue Respiratory: denies: cough, congestion, shortness of breath, exercise intolerance Cardiovascular: denies: chest pain, palpitation, edema, paroxysmal nocturnal dyspnea, orthopnea Gastrointestinal: reports: nausea, vomiting Musculoskeletal: reports: pain Neurological: denies: numbness, syncope, seizure, weakness - Objective Allergies/Adverse Reactions: Allergies Allergy/AdvReac Type Severity Reaction Status Date / Time No Known Drug Allergies Allergy Verified 05/23/20 08:14 Visit Medications: Current Medications Acetaminophen (Acetaminophen 325 Mg Tab) 325 mg PO Q6H PRN PRN Reason: Headache/Fever or Pain Last Admin: 05/28/20 14:35 Dose: 325 mg Documented by: Benztropine Mesylate (Benztropine 1 Mg Tab) 1 mg PO Q8H [facility] Last Admin: 05/29/20 16:29 Dose: 1 mg Documented by: Enoxaparin Sodium (Enoxaparin Sodium 80 Mg/0.8 Ml Syringe) 80 mg SC 0900,2100 [facility] Last Admin: 05/29/20 09:00 Dose: 80 mg Documented by: Fluticasone Propionate (Fluticasone Propionate Nasal [place] 16 Gm Bottle) 0 gm NASAL DAILY [facility] Last Admin: 05/29/20 09:00 Dose: 1 spr Documented by: Promethazine HCl 12.5 mg/ (Sodium Chloride) 50.5 mls @ 202 mls/hr IVPB Q6H PRN PRN Reason: Nausea/Vomiting Last Admin: 05/29/20 17:50 Dose: 50.5 mls Documented by: Lactated Ringer's (Lactated Ringer's) 1,000 mls @ 120 mls/hr IV .Q8H20M [facility] Last Admin: 05/29/20 16:29 Dose: 1,000 mls Documented by: Loratadine (Loratadine 10 Mg Tab) 10 mg PO DAILY [facility] Last Admin: 05/29/20 09:01 Dose: 10 mg Documented by: Lorazepam (Lorazepam 2 Mg/Ml Vial) 0.25 mg SLOW IVP Q6H PRN PRN Reason: Anxiety/Agitation Last Admin: 05/29/20 12:44 Dose: 0.25 mg Documented by: Metoclopramide HCl (Metoclopramide Hcl 10 Mg/2 Ml Vial) 10 mg IVP Q8HR [facility] Last Admin: 05/29/20 16:29 Dose: 10 mg Documented by: Miscellaneous Information (Communication Order-Pharmacy ) 0 each FS ONE [facility] Nitroglycerin (Nitroglycerin 0.4 Mg Tab (25 Tab Bottle)) 0.4 mg SL Q15MIN PRN PRN Reason: Chest Pain Ondansetron HCl (Ondansetron Odt 4 Mg Tab) 4 mg PO Q6H PRN PRN Reason: Nausea/Vomiting Last Admin: 05/29/20 09:01 Dose: 4 mg Documented by: Pantoprazole Sodium (Pantoprazole 40 Mg Vial) 40 mg IVP DAILY [facility] Last Admin: 05/29/20 09:01 Dose: 40 mg Documented by: Sertraline HCl (Sertraline Hcl 100 Mg Tab) 100 mg PO DAILY [facility] Last Admin: 05/29/20 09:01 Dose: 100 mg Documented by: Sodium Chloride (Flush - Normal Saline 10 Ml Syringe) 10 ml IVF Q12HR [facility] Last Admin: 05/29/20 09:01 Dose: 10 ml Documented by: Sodium Chloride (Flush - Normal Saline 10 Ml Syringe) 10 ml IVF PRN PRN PRN Reason: Saline Flush Vital Signs & Weight: Vital Signs Temp Pulse Resp BP BP Pulse Ox 05/29/20 16:30 98.4 F 84 16 127/88 99 05/29/20 12:43 97.9 F 65 16 147/84 H 98 05/29/20 09:00 97 05/29/20 08:50 98.2 F 66 15 156/81 H 97 Admit Weight 174 lb Weight 174 lb - Physical Exam HEENT: normocephaly Neck: supple neck, no JVD/HJR Cardiac: regular rate and rhythm, no murmur Lungs: clear to auscultation Neuro: grossly intact Abdomen: unremarkable Extremities: no edema Skin: clear Musculoskeletal: normal range of motion - Labs Result Diagrams: 05/29/20 06:25 05/29/20 06:25 Troponin/CKMB CK-MB (CK-2) 2.3 ng/mL (0-6.6) 05/27/20 18:44 Troponin I 0.909 ng/mL (< 0.028) H* 05/28/20 04:20 Labs: troponin (0.9) - EKG Interpretation EKG: sinus rhythm (EKG changes today with T-wave inversions inferiorly prior to stress test. Test cancelled. These are new changes.) - Assessment/Plan Assessment/Plan: 1. Abnormal EKG, new changes. Unable to perform stress. troponin -I 0.9. Based on presentation ,symptoms,troponin -I increase and EKG changes I suggest she have a cardia cath. Plan for AM. Discussed procedure and risks with pt. to include ,bleeding,ND,renal insufficiency. she agrees to proceed. 2. Intractable nausea/vomiting.
[2020-05-29] MEDS ORDERED: Communication Order-Pharmacy FS SCH (18:00)
[2020-05-30] MEDS: Benztropine 1 MG TAB PO SCH ×4 (01:03→21:18)
[2020-05-30 04:36] LABS: #Basophils 0.1 thou/uL (0.0-0.2); #Monocytes 0.9 thou/uL (0.11-0.59); #Neutrophils 7.1 thou/uL (1.40-6.50); %Basophils 0.7 % (0.0-1.0); %Eosinophils 0.4 % (0.0-10.0); %Lymphocytes 20.1 % (21.0-51.0); %Monocytes 8.4 % (0.0-10.0); %Neutrophils 70.4 % (42.0-75.0); Hemoglobin 16.6 g/dL (12.0-16.0); Mean Corpuscular HGB CONC 33.5 g/dL (32.0-36.0); Mean Corpuscular Hemoglobin 31.4 pg (27.0-31.0); Mean Platelet Volume 8.2 fL (7.4-10.4); Platelet Count 280 thou/uL (130-400); RBC Distribution Width 12.5 % (11.5-14.5); Red Blood Cell (RBC) Count 5.28 mill/uL (4.20-5.40); White Blood Cell (WBC) Count 10.1 thou/uL (4.8-10.8)
[2020-05-30] MEDS: Acetaminophen 325 MG TAB PO PRN (04:45)
[2020-05-30] MEDS: Lorazepam 2 MG/ML VIAL SLOW IVP PRN ×3 (04:46→21:18)
[2020-05-30] MEDS: Metoclopramide HCl 10 MG/2 ML VIAL IVP SCH ×3 (04:52→21:18)
[2020-05-30 05:05] LABS: ALT (SGPT) 22 U/L (8-55); AST (SGOT) 24 U/L (5-34); Albumin 4.1 g/dL (3.5-5.0); Alkaline Phosphatase 63 U/L (40-110); Anion Gap 16 mmol/L (10-20); BUN (Urea Nitrogen) 6 mg/dL (7.0-18.7); Bilirubin, Total 1.3 mg/dL (0.2-1.2); Calc. Creatinine Clearance 128 mL/min (70-130); Calcium 9.3 mg/dL (7.8-10.44); Carbon Dioxide 25 mmol/L (22-29); Chloride 101 mmol/L (98-107); Estimated GFR-MDRD Greater than 90; Globulin 2.9 g/dL (2.4-3.5); Glucose 101 mg/dL (70-105); Phosphorus 2.7 mg/dL (2.3-4.7); Potassium 3.5 mmol/L (3.5-5.1); Sodium 138 mmol/L (136-145)
--- NOTE | 2020-05-30 06:10 | PDOC.FM ---
- Subjective Subjective: Patient resting comfortably this morning. States she did no vomit overnight. Nausea is controlled at time of interview, states it is better when not moving around. As per tele, no events overnight. Yesterday, patient had ST changes and possible T wave inversion. She is scheduled for a cath this morning. Denies CP, SOB. - Objective MAR Reviewed: Yes Vital Signs & Weight: Vital Signs (12 hours) Temp Pulse Resp BP BP Pulse Ox 05/30/20 04:00 98.6 F 78 16 158/89 H 97 05/30/20 03:20 97 05/29/20 23:41 162/96 H 05/29/20 20:00 99.6 F 84 16 159/94 H 97 Weight Admit Weight 78.925 kg Weight 78.925 kg I&O: 05/28/20 05/29/20 05/30/20 06:59 06:59 06:59 Intake Total 380 2690 1200 Output Total 400 1220 1400 Balance -20 1470 -200 Result Diagrams: 05/30/20 04:19 05/30/20 04:19 Phys Exam - Physical Examination Constitutional: NAD HEENT: moist MMs Neck: full ROM Respiratory: no wheezing Cardiovascular: RRR, no significant murmur Gastrointestinal: soft, non-tender Musculoskeletal: no edema, pulses present Neurological: moves all 4 limbs Psychiatric: A&O x 3 Skin: normal turgor Dx/Plan - Plan Plan: Type 2 NSTEMI Atypical CP Trop .223 > .568 >.838 >.909 EKG unchanged from previous visit, no ST changes CXR negative RFs include smoking (vapes) Heart Score 2 - s/p lovenox & aspirin in ED, will continue therapeutic lovenox, aspirin, added nitropaste - A1C 5.1% - Cardiology consulted in ED, appreciate the recs - tele monitoring - UDS positive for cannabinoids - echo: EF 60-65%, mild septal hypokinesis - stress: incomplete study, possibly 2 regions of infarction/scar - plan for cath 05/30, follow up findings Intractable N/V, improving Likely 2/2 NSTEMI vs Cannabinoid Hyperemesis Syndrome - symptomatic management with zofran PRN, reglan MAYRA, phenergan PRN, will escalate as necessary - monitor electrolytes - mIVFs - patient to follow up outpatient as she is established with a GI already -advance diet after cardiac workup Extrapyramidal effects of Metoclopramide - s/p benadyrl IV, will add benztropine -improving Hx Anemia - aware Hx Anxiety Depression - will restart home medications - PRN Ativan Code: Full Prophylaxis: Thx lovenox, protonix Fluids: LR 120ml/hr Diet: NPO for cath today Disposition: pending cardiac workup, and ability to tolerate PO PCP: None, bounce back, visiting from [place] Addendum - Attending - Attending Attestation Date/Time: 05/30/20 [id number] I personally evaluated the patient and discussed the management with Dr. Kong. I agree with the History, Examination, Assessment and Plan documented above with any addition or exceptions noted below.
[2020-05-30] MEDS: Lactated Ringer's 1,000 ML IV SCH ×3 (06:27→16:30)
[2020-05-30] MEDS ORDERED: Lidocaine 1% (PF) 30 ML VIAL ONE (06:45)
[2020-05-30] MEDS ORDERED: Heparin 0 ML ONE (06:45)
[2020-05-30] MEDS: Fluticasone Propionate Nasal Spray 16 gm Bottle NASAL SCH (09:22)
[2020-05-30] MEDS: Loratadine 10 MG TAB PO SCH (09:22)
[2020-05-30] MEDS: Pantoprazole 40 MG VIAL IVP SCH (09:23)
[2020-05-30] MEDS: Ondansetron ODT 4 MG TAB PO PRN (16:30)
[2020-05-31 04:33] LABS: #Basophils 0.1 thou/uL (0.0-0.2); #Eosinphils 0.1 thou/uL (0.0-0.7); #Lymphocytes 1.9 thou/uL (1.20-3.40); #Monocytes 0.7 thou/uL (0.11-0.59); #Neutrophils 4.6 thou/uL (1.40-6.50); %Basophils 1.4 % (0.0-1.0); %Eosinophils 1.3 % (0.0-10.0); %Monocytes 9.3 % (0.0-10.0); %Neutrophils 61.9 % (42.0-75.0); Hemoglobin 15.5 g/dL (12.0-16.0); Mean Corpuscular HGB CONC 31.9 g/dL (32.0-36.0); Mean Corpuscular Hemoglobin 30.8 pg (27.0-31.0); Mean Corpuscular Volume 96.3 fL (78.0-98.0); Mean Platelet Volume 8.1 fL (7.4-10.4); Platelet Count 247 thou/uL (130-400); RBC Distribution Width 12.5 % (11.5-14.5); Red Blood Cell (RBC) Count 5.05 mill/uL (4.20-5.40); White Blood Cell (WBC) Count 7.4 thou/uL (4.8-10.8)
[2020-05-31 04:52] LABS: ALT (SGPT) 19 U/L (8-55); AST (SGOT) 18 U/L (5-34); Albumin 3.3 g/dL (3.5-5.0); Alkaline Phosphatase 55 U/L (40-110); Anion Gap 13 mmol/L (10-20); BUN (Urea Nitrogen) 6 mg/dL (7.0-18.7); Bilirubin, Total 0.9 mg/dL (0.2-1.2); Calc. Creatinine Clearance 121 mL/min (70-130); Carbon Dioxide 23 mmol/L (22-29); Chloride 104 mmol/L (98-107); Estimated GFR-MDRD 85; Globulin 2.6 g/dL (2.4-3.5); Glucose 97 mg/dL (70-105); Potassium 3.5 mmol/L (3.5-5.1); Protein, Total 5.9 g/dL (6.0-8.3); Sodium 136 mmol/L (136-145)
[2020-05-31 04:53] LABS: Phosphorus 3.5 mg/dL (2.3-4.7)
[2020-05-31] MEDS: Metoclopramide HCl 10 MG/2 ML VIAL IVP SCH ×2 (06:04→15:09)
[2020-05-31] MEDS: Lactated Ringer's 1,000 ML IV SCH ×2 (06:07→10:08)
--- NOTE | 2020-05-31 06:11 | PDOC.FM ---
- Subjective Subjective: Patient went for cath this AM. No acute events overnight as per tele. Doing much better and tolerating full liquids. - Objective MAR Reviewed: Yes Vital Signs & Weight: Vital Signs (12 hours) Temp Pulse Resp BP Pulse Ox 05/31/20 03:37 97.7 F 75 15 112/63 97 05/31/20 03:00 96 05/30/20 20:00 98.6 F 73 16 144/92 H 99 Weight Admit Weight 78.925 kg Weight 78.925 kg I&O: 05/29/20 05/30/20 05/31/20 06:59 06:59 06:59 Intake Total 2690 1200 250 Output Total 1220 1400 600 Balance 1470 -200 -350 Result Diagrams: 05/31/20 03:55 05/31/20 03:55 Phys Exam - Physical Examination Constitutional: NAD HEENT: moist MMs Neck: full ROM Respiratory: no wheezing, clear to auscultation bilateral Cardiovascular: RRR Gastrointestinal: soft, non-tender Neurological: moves all 4 limbs Psychiatric: normal affect, A&O x 3 Dx/Plan - Plan Plan: Type 2 NSTEMI Atypical CP Trop .223 > .568 >.838 >.909 EKG unchanged from previous visit, no ST changes CXR negative RFs include smoking (vapes) Heart Score 2 - s/p lovenox & aspirin in ED, will continue therapeutic lovenox, aspirin, added nitropaste - A1C 5.1% - Cardiology consulted in ED, appreciate the recs - tele monitoring - UDS positive for cannabinoids - echo: EF 60-65%, mild septal hypokinesis - stress: incomplete study, possibly 2 regions of infarction/scar - plan for cath 05/31: normal, plan to discharge today Intractable N/V, improving Likely 2/2 NSTEMI vs Cannabinoid Hyperemesis Syndrome - symptomatic management with zofran PRN, reglan MAYRA, phenergan PRN, will escalate as necessary - monitor electrolytes - mIVFs - patient to follow up outpatient as she is established with a GI already -advance diet after cardiac workup Extrapyramidal effects of Metoclopramide - s/p benadyrl IV, will add benztropine -improving Hx Anemia - aware Hx Anxiety Depression - will restart home medications - PRN Ativan Code: Full Prophylaxis: Thx lovenox, protonix Fluids: LR 120ml/hr Diet: advance diet as tolerated Disposition: pending cardiac workup, and ability to tolerate PO PCP: None, bounce back, visiting from [place] Addendum - Attending - Attending Attestation Date/Time: 05/31/20 7742 I personally evaluated the patient and discussed the management with Dr. Kong. I agree with the History, Examination, Assessment and Plan documented above with any addition or exceptions noted below. Patient feeling improved. Stable for discharge this afternoon.
[2020-05-31] MEDS: Lorazepam 2 MG/ML VIAL SLOW IVP PRN ×2 (06:38→18:53)
[2020-05-31] MEDS ORDERED: Midazolam HCl 2 mg/2 ml Vial ONE (07:11)
[2020-05-31] MEDS ORDERED: Nitroglycerin 0.4 MG TAB (25 Tab Bottle) SL PRN (09:24)
[2020-05-31] MEDS ORDERED: Sodium Chloride 0.9% 200 ML IV PRN (09:24)
[2020-05-31] MEDS ORDERED: Acetaminophen/Codeine 30-300mg Tablet PO PRN ×2 (09:24)
[2020-05-31] MEDS: Fluticasone Propionate Nasal Spray 16 gm Bottle NASAL SCH (10:08)
[2020-05-31] MEDS: Loratadine 10 MG TAB PO SCH (10:08)
[2020-05-31] MEDS: Benztropine 1 MG TAB PO SCH ×2 (10:08→15:09)
[2020-05-31] MEDS: Pantoprazole 40 MG VIAL IVP SCH (10:09)
[2020-05-31] MEDS: Ondansetron ODT 4 MG TAB PO PRN ×2 (10:17→18:53)
[2020-05-31] MEDS ORDERED: Iopamidol 370 76% 100 ML VIAL ONE (14:17)
[2020-05-31 14:32] VITALS: BP 133/55; TEMP 98.1
--- NOTE | 2020-06-01 01:23 | DIS ---
DATE OF ADMISSION: 05/27/2020 DATE OF DISCHARGE: 05/31/2020 RESIDENT: Lia Kong MD, PGY-1. ADMITTING ATTENDING: Dr. Michael Bullock. DISCHARGE ATTENDING: Dr. Fausto Diaz. CONSULT: Cardiology. PROCEDURES: Chest x-ray on 05/27/2020, which showed no radiographic evidence of acute cardiopulmonary process. A stress test on 05/29/2020, which was incomplete. Cannot evaluate for areas of reversible ischemia, because the stress study was canceled at least 1 and possibly 2 regions of infarction or scar. Study was canceled due to ST-segment changes and T-wave inversion. Echocardiogram on 05/29/2020, which showed an ejection fraction of 60% to 65% and mild septal hypokinesis, trace mitral regurgitation and mild tricuspid regurgitation. A cardiac cath was performed on 05/31/2020, which showed normal coronaries, good ventricular function, estimated LV ejection fraction of 60% to 65%. PRIMARY DIAGNOSIS: Type 2 [id number] myocardial infarction. SECONDARY DIAGNOSES: 1. Intractable nausea/vomiting, likely secondary to cannabinoid hyperemesis syndrome versus [id number] myocardial infarction. 2. Extrapyramidal effects of metoclopramide. 3. History of anemia. 4. History of anxiety and depression. DISCHARGE MEDICATIONS: 1. Zofran ODT 4 mg tablet p.o. p.r.n. 2. Claritin 10 mg 1 tablet p.o. daily. 3. Flonase Allergy Relief 1 spray each nostril daily. 4. Zoloft 100 mg p.o. daily. 5. Omeprazole 20 mg p.o. daily. 6. Phenergan 25 mg p.o. q.6 hours as needed. 7. Benztropine 1 mg p.o. q.8 hours. 8. Reglan 10 mg p.o. t.i.d. 9. Ativan 0.25 mg p.o. b.i.d. as needed. Discontinued medication: Compazine 5 mg p.o. q.4 hours as needed. HISTORY OF PRESENT ILLNESS/HOSPITAL COURSE: The patient is a 44-year-old female with a past medical history of gastric bypass surgery, anemia, anxiety, depression, who presented to the ED with complaints of nausea and vomiting that started on the afternoon of admission. She also complained of chest pain, shortness of breath. She states that she has vomited 10 plus times, but denied any blood in the vomit. She does have associated abdominal cramping. She states that her chest pain and shortness of breath have been on and off for the past few days. The pain is central in her chest and mild with no radiation. Nothing makes the pain better or worse. She says her shortness of breath is worse when talking. She denies any fevers, chills, ill contacts, urinary symptoms, headaches, vision changes. Of note, the patient was discharged from the hospital 4 days prior to this hospitalization due to intractable nausea and vomiting, that was suspected to be secondary to cannabis hyperemesis syndrome. The patient states she has not smoked weed since her first hospitalization. In the ED, the patient had an elevated troponin of 0.223, but an unchanged EKG from previous visit. Cardiology was consulted from the ED, who recommended trending her troponins and saying that she would follow up. The patient was given aspirin, Lovenox, metoclopramide, Benadryl, Protonix, and 1 L normal saline in the ED. Troponins were trended upwards to 0.568, 0.838, and 0.909. Cardiology was aware. During the patient's hospitalization, her vitals remain stable, and her nausea and vomiting resolved. The patient was taken to the mechanical laboratory technician by Cardiology with a normal procedure and exam. The patient was able to tolerate clear liquids and advance to soft foods and states that she felt much better and denied any additional episodes of chest pain. DISPOSITION: Stable. DISCHARGE INSTRUCTIONS: 1. Location: Home. 2. Diet: [place] diet and advance as tolerated given symptoms of nausea and vomiting. 3. Activity: Activity as tolerated. 4. Followup: Follow up with PCP and GI doctor, whom the patient has already established with in [place]. Job ID: [id number] [facility]
--- NOTE | 2020-06-04 01:42 | PQF ---
CLINICAL DOCUMENTATION CLARIFICATION FORM: Dear :Fausto Shirley Date / Time: 06/04/2020 0141 Please exercise your independent, professional judgment in responding to the clarification form. Clinical indicators are provided on the bottom of this form for your review In your clinical opinion based on clinical findings below, can you please identify the etiology of NSTEMI type II if due to: Please check appropriate box(es): [ ] Toxic effect of Marijuana [ ] Extrapyramidal effects of Metoclopramide [ ] Other diagnosis [ X ] Unable to determine In addition, please specify: Present on Admission (POA): [X ] Yes [ ] No [ ] Unable to determine Physician Signature: Date/Time: For continuity of documentation, please document condition throughout progress notes and discharge summary. Thank You. 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 She tests positive for marijuanahh Consult Dr Santiago 05/25 Present Risk Factors Results and Location in Medical Record [X] Vapes daily H&P p2 05/27 Dr Juarez [X] Anxiety and depression H&P p2 05/27 Dr Juarez Present Treatments Results and Location in Medical Record [X] IVF NS 1L SEP 27 [X] IV Protonix 40 mg SEP 27 [X] Nitro-bid 2% Ointment 1 inch SEP 27 [X] IV Lactated Ringers 1L MAR 11/8 [X] Aspirin Chewable 81 mg MAR 05/27 [X] UDS Toxicology 05/28 [X] Cardiac Catheterization Procedure 05/31 Dr Santiago [X] Cardio Consult Consult Dr Santiago 05/25 CDS/Hand Edger Signature: Fely Ferris Phone #: [phone] Date/Time: 06/04/2020 0145 This is a permanent part of the Medical Record [facility]
== END 2020-05-31 19:00 | disposition home or self-care (01) | DRG 391 ==
LOC: ERS 17:58 → 2NO 20:51 → OBSVTOIN 20:52
PROVIDERS: ADMIT Family Medicine; ATTEND Family Medicine
PROC: 4A023N7 Measurement of Cardiac Sampling and Pressure, Left Heart, Percutaneous Approach (ICD-10-PCS; principal; 2020-05-31)
PROC: B2111ZZ Fluoroscopy of Multiple Coronary Arteries using Low Osmolar Contrast (ICD-10-PCS; 2020-05-31)
PROC: B2151ZZ Fluoroscopy of Left Heart using Low Osmolar Contrast (ICD-10-PCS; 2020-05-31)
DX: R11.2 Nausea with vomiting, unspecified (principal); I21.A1 Myocardial infarction type 2; G25.70 Drug induced movement disorder, unspecified; T45.0X5A Adverse effect of antiallergic and antiemetic drugs, initial encounter; F41.9 Anxiety disorder, unspecified; F32.9 Major depressive disorder, single episode, unspecified; G25.79 Other drug induced movement disorders; D64.9 Anemia, unspecified; E66.9 Obesity, unspecified; F12.90 Cannabis use, unspecified, uncomplicated; I08.1 Rheumatic disorders of both mitral and tricuspid valves; F17.290 Nicotine dependence, other tobacco product, uncomplicated; Z98.84 Bariatric surgery status; Z79.899 Other long term (current) drug therapy; Z68.30 Body mass index [BMI] 30.0-30.9, adult; Z83.3 Family history of diabetes mellitus; Z82.49 Family history of ischemic heart disease and other diseases of the circulatory system
CPT/HCPCS: 36415; 71045; 78451; 80048; 80053; 80061; 80306; 81003; 81015; 81025; 82553; 83036; 83690; 83735; 84100; 84484; 85025; 93005; 93306; 93458; 96365; 96372; 96375; 99152; A9500; C9113; J1200; J1644; J1650; J2001; J2060; J2250; J2550; J2765; Q0162; Q9967

== ENCOUNTER 2020-06-02 07:41 | Emergency (ER) | payer OTHER ==
[2020-06-02] MEDS ORDERED: Promethazine HCl 25 MG/ML VIAL ONE (08:28)
[2020-06-02] MEDS ORDERED: Ondansetron PF 4 MG/2 ML Vial ONE ×2 (08:28→11:03)
[2020-06-02 08:40] LABS: #Lymphocytes 0.7 thou/uL (1.20-3.40); #Monocytes 0.2 thou/uL (0.11-0.59); #Neutrophils 7.8 thou/uL (1.40-6.50); %Basophils 0.2 % (0.0-1.0); %Eosinophils 0.2 % (0.0-10.0); %Lymphocytes 7.6 % (21.0-51.0); %Monocytes 2.2 % (0.0-10.0); %Neutrophils 89.9 % (42.0-75.0); Hemoglobin 15.9 g/dL (12.0-16.0); Mean Corpuscular HGB CONC 33.9 g/dL (32.0-36.0); Mean Corpuscular Hemoglobin 31.1 pg (27.0-31.0); Mean Corpuscular Volume 91.6 fL (78.0-98.0); Mean Platelet Volume 8.3 fL (7.4-10.4); Platelet Count 288 thou/uL (130-400); RBC Distribution Width 12.4 % (11.5-14.5); Red Blood Cell (RBC) Count 5.12 mill/uL (4.20-5.40); White Blood Cell (WBC) Count 8.6 thou/uL (4.8-10.8)
[2020-06-02 08:42] LABS: Bilirubin Negative (Negative); Blood, Urine Negative (Negative); Clarity Clear (Clear); Glucose, Urine (Dipstick) Normal (Negative); Ketone, Urine 20 mg/dL (Negative); Leukocyte Negative Leu/uL (Negative); Nitrite Negative (Negative); Protein, Urine (Dipstick) Negative (Neg-Trace); Specific Gravity, Urine 1.013 (1.002-1.036); Urobilinogen Normal mg/dL (Less than 2)
[2020-06-02] MEDS ORDERED: Benztropine 1 MG TAB PO SCH ×2 (08:45→10:52)
[2020-06-02 08:53] LABS: Amphetamine Not Detected (NotDetected); Benzodiazepine Screen Not Detected (NotDetected); Cocaine Metabolite Screen Not Detected (NotDetected); Medtox Reader # READER 4; Methadone Not Detected (NotDetected); Methamphetamine Not Detected (NotDetected); Opiate Screen Not Detected (NotDetected); Phencyclidine (PCP) Not Detected (NotDetected); THC/Cannabinoid Screen Detected (NotDetected); Tricyclic Screen Not Detected (NotDetected)
[2020-06-02 08:54] LABS: Barbiturates Screen Not Detected (NotDetected); Medtox Control Line Valid? VALID (VALID); Oxycodone Screen Not Detected (NotDetected)
[2020-06-02 08:59] LABS: BHCG - Serum Negative (NEGATIVE); Pregs Control Background? CLEAR/WHITE (CLR/WHITE); Pregs Control Bar Appear? YES (CONTROL BAR)
[2020-06-02 09:08] LABS: ALT (SGPT) 22 U/L (8-55); AST (SGOT) 14 U/L (5-34); Alkaline Phosphatase 62 U/L (40-110); Anion Gap 18 mmol/L (10-20); BUN (Urea Nitrogen) 11 mg/dL (7.0-18.7); Bilirubin, Total 0.5 mg/dL (0.2-1.2); CK (CPK) 92 U/L (29-168); Calc. Creatinine Clearance 0 mL/min (70-130); Calcium 8.9 mg/dL (7.8-10.44); Carbon Dioxide 19 mmol/L (22-29); Chloride 105 mmol/L (98-107); Globulin 2.9 g/dL (2.4-3.5); Glucose 145 mg/dL (70-105); Lipase 15 U/L (8-78); Potassium 3.5 mmol/L (3.5-5.1); Protein, Total 6.9 g/dL (6.0-8.3); Sodium 138 mmol/L (136-145)
[2020-06-02 09:37] LABS: CKMB 1.3 ng/mL (0-6.6)
[2020-06-02] MEDS ORDERED: Haloperidol Lactate 5 MG/ML VIAL ONE (10:12)
--- NOTE | 2020-06-09 17:03 | EKG ---
Test Reason : Blood Pressure : / mmHG Vent. Rate : 072 BPM Atrial Rate : 072 BPM P-R Int : 118 ms QRS Dur : 078 ms QT Int : 438 ms P-R-T Axes : 062 -09 043 degrees QTc Int : 479 ms Normal sinus rhythm with sinus arrhythmia Inferior infarct , age undetermined Abnormal ECG Confirmed by MARBELLA JOSÉ DO ([id number]), newspaper copy editor SHAWN ROMAN ([id number]) on 06/09/2020 5:02:26 PM Referred By: Confirmed By:MARBELLA JOSÉ DO
== END 2020-06-02 11:55 | disposition home or self-care (01) ==
LOC: ERS 07:41
DX: R11.2 Nausea with vomiting, unspecified (principal); F41.9 Anxiety disorder, unspecified; F32.9 Major depressive disorder, single episode, unspecified; Z87.891 Personal history of nicotine dependence; Z79.899 Other long term (current) drug therapy
CPT/HCPCS: 80053; 80306; 81003; 82550; 82553; 83605; 83690; 84484; 84703; 85025; 93005; 96374; 96375; 96376; J1630; J2405; J2550